=== PATIENT | female | born 1985 | race Caucasian/White ===

== ENCOUNTER 2016-08-18 14:50 | Emergency (ER) | payer OTHER ==
[~2016-08-18] VITALS: Ht 157.5 cm; Wt 72.0 kg
[~2016-08-18 14:50] MED LIST: CALC600T5 PO; IBUP800T25 PO; PERCOCET PO; PREN-39 PO
[2016-08-18 15:37] VITALS: Ht 157.5 cm; Wt 72.0 kg
[2016-08-18] MEDS ORDERED: NAPR-260 PO (17:05)
[2016-08-18] MEDS ORDERED: PRED20TA PO (17:05)
--- NOTE | 2016-08-18 17:31 | ERD ---
ER Documentation Chief Complaint Date/Time DATE: 08/18/16 TIME: 17:28 Chief Complaint RIGHT HAND NUMBNESS X 4 DAYS HPI 30-year-old female comes in with right hand numbness and pain for the past month , now affecting her left hand for the last 4 days. Patient states that is sharp shooting pain, numbness associated with her right first second and third digits, with pain across her entire left hand. She has not had any trauma to the neck or arms. It radiates from her arms down to her hands. She does not have any history of diabetes, fevers or chills. ROS All systems reviewed and are negative except as per history of present illness. Medications Home Meds Active Scripts Prednisone* (Prednisone*) 20 Mg Tab, 40 MG PO DAILY for 4 Days, TAB Prov:LÓPEZ MONSALVE PA-C 08/18/16 Naproxen* (Naprosyn*) 500 Mg Tablet, 500 MG PO BID Y for PAIN AND/OR INFLAMMATION, #30 TAB Prov:LÓPEZ MONSALVE PA-C 08/18/16 Oxycodone Hcl/Acetaminophen (Percocet) 1 Tab Tab, 2 TAB PO Q4H Y for PAIN LEVEL 6-10, #30 TAB 0 Refills Prov:JOSE BLACKWELL MD 02/20/16 Ibuprofen* (Ibuprofen*) 800 Mg Tablet, 800 MG PO Q8, #20 TAB 0 Refills Prov:JOSE BLACKWELL MD 02/20/16 Reported Medications Calcium Carbonate (CALCIUM) 600 Mg Tablet, 600 MG PO DAILY, TAB 02/18/16 Vits W-Ca,Fe,Fa(<1MG) ( Vitamins) 1 Tab Tablet, 1 TAB PO DAILY , TAB 10/05/15 Allergies Allergies: Coded Allergies: No Known Allergy (Unverified , 10/05/15) PMhx/Soc Hx Alcohol Use: No Hx Substance Use: No Physical Exam Vitals Vital Signs Date Time Temp Pulse Resp B/P Pulse Ox O2 Delivery O2 Flow Rate FiO2 08/18/16 15:37 98.3 78 18 125/83 98 Physical Exam General: Well-developed, well-nourished. The patient appears in no acute distress. HEENT: Head is normocephalic, atraumatic. No scleral icterus. Neck: Supple. Nontender. Lungs: Clear to auscultation. Normal air movement. Heart: Regular rate and rhythm. S1 and S2 are normal. No murmurs, gallops, or rubs. Abdomen: Soft, nontender, nondistended. Bowel sounds are normoactive. Extremities: No clubbing or cyanosis. Normal pulses. Moving extremities x 4. No weakness. Radial pulses 2+ bilaterally. Neurologic: Radian, ulnar, median nerves intact bilaterally, capillary refill less than 2 seconds. Skin: Normal turgor. No rash or lesions. Procedures/MDM 30-year-old female presents with neuropathy to both of her upper extremities, no evidence of compression, no evidence of central process, this appears to be a peripheral neuropathy. I do not feel that the patient needs CT brain imaging , or x-rays given that she has no pain or history of trauma to her cervical spine. 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 She will be given pain medication to go home, I have advised that she may benefit from an evaluation with physical therapy. Departure Diagnosis: Primary Impression: Numbness Condition: Good Patient Instructions: Treating Peripheral Neuropathy Additional Instructions: Call your primary care doctor TOMORROW for an appointment during the next 1-2 days.See the doctor sooner or return here if your condition worsens before your appointment time. LÓPEZ MONSALVE PA-C Aug 18, 2016 17:31
== END 2016-08-18 17:30 | disposition home or self-care (01) ==
LOC: E/R 14:50
DX: R20.0 Anesthesia of skin (principal)
CPT/HCPCS: 99283

== ENCOUNTER 2019-04-01 16:58 | Emergency (ER) | payer OTHER ==
[~2019-04-01] VITALS: Ht 160 cm; Wt 90.0 kg
[~2019-04-01 16:58] MED LIST changes: +IBUP-1542 PO; +IBUP-1544 PO; -IBUP800T25 PO; +NAPR-985 PO; +ONDA4TAB14 PO; +PRED20TA PO
[2019-04-01 17:04] VITALS: Ht 160 cm; Wt 90.0 kg
[2019-04-01] MEDS ORDERED: ONDANSETRON 4 MG INJ IV STA (18:13)
[2019-04-01] MEDS ORDERED: KETOROLAC 30 MG INJ IV STA (18:13)
[2019-04-01] MEDS ORDERED: HYDROCODONE/APAP (5/325) TAB PO ONE (18:30)
[2019-04-01 20:34] VITALS: BP 114/78; PULSE 62; RESP 20
== END 2019-04-01 20:35 | disposition home or self-care (01) ==
LOC: FTE 16:58
DX: R10.9 Unspecified abdominal pain (principal); R31.9 Hematuria, unspecified
CPT/HCPCS: 36415; 74176; 80053; 81001; 81025; 83690; 85025; 96374; 96375; J1885; J2405; Z7502